=== PATIENT | male | born 1940 | race Caucasian/White ===

== ENCOUNTER 2017-04-14 08:45 | Inpatient (IN) | payer MEDICARE ==
--- NOTE | 2017-04-02 15:52 | HP ---
CC: Dr. Julio César Mayberry; Dr. Ismael Mcfarland, [facility]; Dr. Jamie Martel, [facility]; Dr. Virgilio Valentin, [facility] associated with Michael * DATE OF ADMISSION: 04/14/2017. This patient is scheduled for AA admission by Dr. Simeon. DATE OF PREOPERATIVE HISTORY AND PHYSICAL EXAMINATION: 04/01/2017. ATTENDING SURGEON: Dr. Bertin Simeon * (dictated by Sulma Kinsey, MOHINI). CHIEF COMPLAINT: Colostomy reversal. HISTORY OF PRESENT ILLNESS: The patient is a pleasant, 76-year-old male with multiple medical comorbidities. He was admitted to [facility] 2016 with bilateral pneumonia and urosepsis. He was dehydrated and required treatment with IV fluids and antibiotics. CAT scan of the abdomen revealed a large area of air from the ischium to the peritoneum and the patient was subsequently transferred to [facility] for incision and drainage of a large ischiorectal abscess. Due to chronic diarrhea, he underwent diverting transverse loop colostomy to allow the wound to heal. He was then admitted to [facility] on 06/17/2016 with discharge on 06/26/2016 to [facility] for further rehab. The patient was discharged home 2016. His ischial rectal wound has healed and he has recovered nicely and has been medically cleared to proceed with the scheduled surgery of open reversal of colostomy by Dr. Simeon. He underwent colonoscopy by Dr. Simeon February [address] Simeon was able to visualize both the proximal and distal limbs of the colostomy and there were no significant abnormal findings. Dr. Simeon has reviewed the findings with the patient and has described the nature of the surgical procedure and the expected hospitalization, and today I reviewed with him the guidelines for a bowel cleansing prep on the day before surgery consisting of clear liquid diet, Colyte laxative, Neomycin and Metronidazole. The patient has had a chance to ask questions and stated that he understands the information and is satisfied with the answers given to his questions. He will sign surgical consent on the day of surgery. PAST MEDICAL HISTORY: Significant for type 2 diabetes, hypertension, hyperlipidemia, coronary artery disease with myocardial infarction 1998, colon cancer with low anterior resection followed by chemotherapy and radiation in 1999, COPD, possible obstructive sleep apnea, chronic right pleural effusion, bilateral pneumonia May 2016, bladder outlet obstruction during May 2016 hospitalization requiring indwelling Erickson catheter, urosepsis, urge urinary incontinence after removal of the indwelling Erickson catheter which is now improved with Vesicare as prescribed by Dr. Theodore. He also suffers from hearing loss and degenerative joint disease causing ambulation dysfunction and he uses a cane. PAST SURGICAL HISTORY: Incision and drainage of large ischiorectal abscess May 2016 at [facility], diverting transverse loop colostomy May 2016 due to chronic diarrhea and wound contamination, low anterior colon resection 1999, followed by chemo and radiation, retinal procedures and tonsillectomy. MEDICATIONS: 1. Lisinopril 5 mg p.o. daily. 2. Tamsulosin 0.4 mg daily. 3. Potassium ER 10 mEq daily. 4. Aspirin 81 mg p.o. daily. The patient will continue this in the perioperative period. 5. Furosemide 20 mg p.o. daily. 6. Pantoprazole 40 mg p.o. daily. 7. Docusate 100 mg p.o. b.i.d. 8. Ferrous Sulfate 325 mg p.o. b.i.d. 9. Metoprolol 25 mg p.o. b.i.d. 10. Glipizide 5 mg p.o. b.i.d. The patient was instructed to hold Glipizide during the bowel prep on 04/13/2017 and on the morning of surgery. 11. Gabapentin 600 mg t.i.d. 12. Simvastatin 40 mg p.o. daily at bedtime. 13. Hydrocodone acetaminophen 5/325 b.i.d. prn. 14. Clotrimazole 1% cream apply to the affected area b.i.d. 15. Dorzolamide-Timolol eye drops one drop in each eye b.i.d. ALLERGIES: PENICILLIN CAUSED HIVES, NIACIN CAUSED FLUSHING. FAMILY HISTORY: Both parents had some type of cancer. No known anesthesia complications, bleeding tendencies or clotting disorders. 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 He is a former smoker of two packs of cigarettes per day for 35 years and quit smoking May 2016. He denies the use of alcohol or other substances. He states that currently a nurse from [employer] visits once a week. REVIEW OF SYSTEMS: Constitutional: No fevers, chills, excessive fatigue or change in weight. Respiratory: History of chronic right pleural effusion, history of bilateral pneumonia May 2016, significant history of smoking two packs per day for 35 years and quit in May 2016. He denies any shortness of breath, but he is not very physically active. He has been diagnosed with COPD and is followed at [place] in the [facility] by Dr. Valentin and has been cleared to proceed with the upcoming surgery. Dr. Valentin' note indicates the patient may have obstructive sleep apnea which is untreated and he cautions on oversedation. Cardiovascular: History of coronary artery disease with an AZ in 1998 and he underwent cardiac cath at that time and was advised medical treatment only. According to the cardiology clearance note from Dr. Martel from the [facility], the patient has been stable from a cardiac standpoint for the past 17 years and was able to go through the colon resection as well as the transverse loop colostomy procedures without any significant cardiac symptoms. The patient denies any chest pain or palpitations. He is treated for hypertension and has chronic edema of the lower extremities. Endocrine: He is a type 2 diabetic. He checks his fingerstick at home one to five a week and reports it typically runs anywhere from 2 to 300. His fasting blood sugar on 04/01/2016 with his preadmission testing was 275 and his primary care physician, Dr. Julio César Mayberry has been notified. Gastrointestinal: Colostomy is functioning very well. He denies any abdominal pain, nausea, or vomiting. Genitourinary: He is following with Dr. Theodore for urge urinary incontinence and a history of bladder outlet obstruction during his May 2016 hospitalization. He is improving with Vesicare. He has no previous renal disease or renal calculi. General: Denies any history of deep vein thrombosis or pulmonary embolism. Denies any bleeding tendencies, is not sure if he ever received a blood transfusion. He denies any previous anesthesia complications. He has been cleared to proceed with surgery by Dr. Ismael Mcfarland who is his internal medicine physician at the [facility]. He has been cleared from cardiology by Dr. Martel from [facility], and by Dr. Virgilio Valentin from the [facility]. PHYSICAL EXAMINATION GENERAL: The patient is a 76-year-old obese male in no acute distress. VITAL SIGNS: Height 67 inches, weight 228 pounds, body mass index 35.7. Blood pressure 140/84, pulse 84, respirations 20, temperature 98.7. SKIN: Warm, dry, intact. HEENT: Benign. NECK: Supple. No cervical lymphadenopathy. LUNGS: Clear throughout the left lung field, diminished breath sounds right lung base, otherwise clear. No rales or rhonchi. HEART: Regular rate and rhythm. No murmurs or rubs appreciated. ABDOMEN: Active bowel sounds in all quadrants. Normal to percussion. Abdomen is soft, nontender, and nondistended without guarding, rigidity, rebound tenderness or organomegaly. No palpable hernias. Upper abdomen loop colostomy with prolapse easily reducible. Lower midline incision without obvious hernia. EXTREMITIES: Lower extremities with chronic edema, no pitting, no skin ulcerations. All extremities are warm. GENITALIA: Exam deferred. RECTAL: Exam deferred. NEUROLOGIC: Alert and oriented times three, hearing deficit noted. Ambulation is steady with the use of a cane. IMPRESSION: Patient required diverting loop colostomy to allow for wound healing which has been achieved. PLAN: AA admission to Dr. Simeon's service on 04/14/2017 for open colostomy reversal. The patient was instructed in a bowel cleansing prep on the day before surgery consisting of clear liquid diet, Colyte laxative, Neomycin, and Metronidazole. ERIC KINSEY NP [id number]/[facility] #: [id number] MONY
--- NOTE | 2017-08-07 14:39 | HP ---
AMENDED REPORT NOW INCLUDES COSIGNER DESIGNATION - ESIGNED BEFORE ADJUSTMENTS CC: Dr. Julio César Mayberry; Dr. Ismael Mcfarland; Dr. Jamie Martel; Dr. Virgilio Valentin * PREOPERATIVE HISTORY AND PHYSICAL: DATE OF ADMISSION: 08/11/17 This patient is scheduled for AA admission by Dr. Simeon on 08/11/17. DATE OF PREOPERATIVE HISTORY AND PHYSICAL EXAM: 08/06/17 ATTENDING SURGEON: Bertin Simeon MD * (dictated by Sulma Kinsey NP). CHIEF COMPLAINT: Colostomy reversal. HISTORY OF PRESENT ILLNESS: The patient is a pleasant 77-year-old male with multiple medical comorbidities. He is known to Dr. Simeon when he was admitted to [facility] on 06/13/16 with bilateral pneumonia and urosepsis. He was dehydrated and required treatment with IV fluids and antibiotics. CAT scan of the abdomen revealed a large area of air from the ischium to the peritoneum, and the patient was subsequently transferred to [facility] for incision and drainage of a large ischiorectal abscess. Due to chronic diarrhea, he underwent diverting transverse loop colostomy to allow the wound to heal. He was then admitted to [facility] on 06/17/16, was discharged, 06/26/16 to the [facility] for further rehab. The patient was discharged home on 07/30/16. His ischiorectal wound healed nicely and he was medically cleared in March 2017 to proceed with the scheduled surgery of open reversal of the colostomy, but on preadmission, his diabetes was noted to be poorly controlled. Now with the guidance from his primary care provider, Dr. Mayberry at [place], the patient's blood sugar is under control and his hemoglobin A1c is 5.6. He is now medically cleared to proceed with the scheduled surgery. He underwent colonoscopy by Dr. Simeon and both the proximal and distal limbs of the colostomy were visualized and there were no significant abnormal findings. Dr. Simeon has reviewed the findings with the patient and has described the nature of the surgical procedure of open reversal of the colostomy, the expected hospitalization, and today I reviewed with him the guidelines for a bowel cleansing prep on the day before surgery consisting of clear liquid diet, Colyte laxative, Neomycin, and metronidazole. The patient has had a chance to ask questions and stated that he understands the information and is satisfied with the answers given to his questions. He will sign surgical consent on the day of surgery. PAST MEDICAL HISTORY: Significant for type 2 diabetes, hypertension, hyperlipidemia, coronary artery disease with myocardial infarction in 1998, colon cancer with low anterior resection followed by chemotherapy and radiation in 1999, COPD, possible obstructive sleep apnea, chronic right pleural effusion , bilateral pneumonia in May 2016, bladder outlet obstruction during May 2016 hospitalization requiring indwelling Erickson catheter, urosepsis, urge, urinary incontinence after removal of the indwelling Erickson catheter, which is now improved with VESIcare as prescribed by Dr. Theodore. He also suffers from hearing loss, degenerative joint disease causing ambulation dysfunction and he typically uses a cane. PAST SURGICAL HISTORY: Incision and drainage of large ischiorectal abscess May 2016 at [facility], diverting transverse loop colostomy in May 2016 due to chronic diarrhea and wound contamination, low anterior colon resection 1999 followed by chemo and radiation, retinal procedures, and tonsillectomy. MEDICATIONS: 1. Simvastatin 40 mg p.o. at bedtime. 2. Gabapentin 300 mg two tablets t.i.d. 3. Lisinopril 5 mg p.o. daily. 4. Metoprolol ER 25 mg p.o. b.i.d. 5. Dorzolamide 2% one drop in each eye b.i.d. 6. Ventolin inhaler 108 mcg per actuation two puffs 4 times a day p.r.n. 7. Tamsulosin 0.4 mg p.o. daily. 8. Potassium chloride ER 10 mEq p.o. daily. 9. Aspirin 81 mg p.o. daily, which he will hold 5 days preop. 10. Furosemide 20 mg p.o. daily. 11. Pantoprazole 40 mg p.o. daily. 12. Docusate 100 mg p.o. b.i.d. 13. Ferrous sulfate 325 mg p.o. b.i.d. 14. Glipizide 5 mg p.o. b.i.d. 15. VESIcare 5 mg p.o. daily. 16. Metformin 500 mg two tablets p.o. b.i.d., and the patient will hold the metformin on the day before surgery and on the morning of surgery. ALLERGIES: 1. PENICILLIN cause hives. 2. NIACIN causes flushing. FAMILY HISTORY: Both parents had some type of cancer; no known anesthesia complications, bleeding tendencies or clotting disorders. 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 He is a former smoker of 2 packs of cigarettes per day for 35 years and quit smoking in May 2016. He denies the use of alcohol or other substances. REVIEW OF SYSTEMS: Constitutional: No fevers, chills, excessive fatigue, and he has been able to lose weight to help with control of his glucose. Respiratory: History of chronic right pleural effusion, bilateral pneumonia May 2016, significant history of smoking 2 packs per day for 35 years and quit in May 2016. He denies any shortness of breath, but he is not very physically active. He has been diagnosed with COPD and is followed at [place] in the [facility] by Dr. Valentin and has been cleared to proceed with the upcoming surgery. Dr. Valentin' note indicates the patient may have obstructive sleep apnea, which is untreated and he cautions on oversedation. Cardiovascular: History of coronary artery disease with an [place] in 1998, and he underwent cardiac cath at that time and was advised medical treatment only. According to the cardiology clearance note from Dr. Martel from the [facility], the patient has been stable from the cardiac standpoint for the past 17 years and was able to go through the colon resection as well as the transverse loop colostomy procedures without any significant cardiac symptoms. The patient denies any chest pain or palpitations. He was treated for hypertension and chronic edema of the lower extremities. Endocrine: He has a type 2 diabetic; his fingersticks have improved and this morning it was 145 and he states that it typically has been less than 200 for the past several months. His hemoglobin A1c is now 5.6. Gastrointestinal: Colostomy is functioning well, he denies any abdominal pain, nausea, or vomiting. Genitourinary: He is followed by Dr. Theodore for urge urinary incontinence and a history of bladder outlet obstruction during the May 2016 hospitalization. He is improving with VESIcare, but he does wear Depends at night. He has no previous renal disease or renal calculi. General: Denies any history of deep vein thrombosis or pulmonary embolism, denies any bleeding tendencies and is not sure if he ever received a blood transfusion. He denies any previous anesthesia complications. PHYSICAL EXAMINATION GENERAL SURVEY: The patient is a 77-year-old overweight male, well developed, in no acute distress. VITAL SIGNS: Height 67 inches, weight approximately 220 pounds. Body mass index 35. Blood pressure 140/90, pulse 80 and regular, respiratory rate 18, temperature 97.8 tympanic. SKIN: Warm, dry, intact. There is a small area of abrasion on the left lower extremity just above the ankle in the lateral aspect, but no sign of drainage or infection. HEENT: Benign. NECK: Supple. No cervical lymphadenopathy. LUNGS: Breath sounds bilaterally clear and equal. No rales or rhonchi. HEART: Regular rate and rhythm. No murmurs or rubs appreciated. ABDOMEN: Active bowel sounds; soft, nontender, and nondistended without guarding, rebound tenderness, or organomegaly. No palpable hernias. Upper abdomen with loop colostomy. There is some prolapse noted, but no parastomal hernia. Lower midline incision without obvious hernia. GENITALIA: Deferred. RECTAL: Deferred. EXTREMITIES: Lower extremities with mild chronic edema; no pitting. Extremities are warm. NEUROLOGIC: Alert and oriented x3. Hearing deficit noted. Ambulation is steady with the use of a cane. IMPRESSION: The patient required diverting loop colostomy to allow for wound healing, which has been achieved. PLAN: AA admission to Dr. Simeon's service on 08/11/17 for open colostomy reversal. The patient was instructed in a bowel cleansing prep on the day before surgery consisting of clear liquid diet, Colyte laxative, Neomycin, and metronidazole. ERIC KINSEY, MOHINI [id number]/[facility] #: [id number] MONY
[2017-08-11] MEDS ORDERED: NS 0.9% IVPB SCH ×2
[2017-08-11] MEDS ORDERED: GENTAMICIN ADULT IVPB SCH ×2
[2017-08-11] MEDS ORDERED: Buffered Lidocaine 0.9% SYRIN* 5 ML/SYR SYRINGE INTRADERM ONE (06:00)
[2017-08-11] MEDS ORDERED: Heparin VIAL(*) 5000 UNITS/ML VIAL (FIVE THOUSAND) ONE (06:10)
[2017-08-11] MEDS ORDERED: Clindamycin 900 MG IVPREMIX(* 900 MG/50 ML SDV IV ONE (06:10)
[2017-08-11] MEDS ORDERED: Midazolam* 1 MG/ML 2 ML VIAL (2 MG) ONE (07:12)
[2017-08-11] MEDS ORDERED: fentaNYL* 50 MCG/ML 2 ML VIAL (100 MCG VIAL) ONE ×3 (07:12→11:38)
[2017-08-11] MEDS ORDERED: Lidocaine 2% PF * 5 ML VIAL ONE (07:38)
[2017-08-11] MEDS ORDERED: Dexamethasone IV* 4 MG/ML 1 ML (4 MG) ONE (07:38)
[2017-08-11] MEDS ORDERED: Famotidine IV* 10 MG/ML 2 ML (20 mg) ONE (07:38)
[2017-08-11] MEDS ORDERED: Propofol* 10 MG/ML 20 ML BTL IV PUSH ONE (07:38)
[2017-08-11] MEDS ORDERED: Cisatracurium* 2 MG/ML MDV 5 ML ONE (07:44)
[2017-08-11] MEDS ORDERED: Phenylephrine INJ* 10 MG/ML 1 ML VIAL (10 MG) ONE (07:59)
[2017-08-11] MEDS ORDERED: EPHEDrine (Pressors)* 50 MG/ML VIAL ONE (08:01)
[2017-08-11] MEDS ORDERED: VASOPRESSIN 20 UNITS/ML 1 ML VIAL ONE (08:06)
[2017-08-11] MEDS ORDERED: Hetastarch 6% in NS* 500 ML IV ONE (08:13)
[2017-08-11] MEDS ORDERED: fentaNYL* 50 MCG/ML 2 ML VIAL (100 MCG VIAL) IV PRN (08:57)
[2017-08-11] MEDS ORDERED: PROCHLORPERAZINE INJ 5 MG/ML 2 ML VIAL IV PRN (08:57)
[2017-08-11] MEDS ORDERED: HYDROmorphone INJ* 1 MG/ML CARPUJECT SYRINGE IV PRN (08:57)
[2017-08-11] MEDS ORDERED: DiMENhydriNATE IV* 50 MG/ML VIAL IV PUSH PRN (08:57)
[2017-08-11] MEDS ORDERED: Levalbuterol 0.63MG/3ML NEB* UNIT OF USE INH PRN (08:57)
[2017-08-11] MEDS ORDERED: Naloxone* 0.4 MG/ML 1 ML VIAL IV PRN (08:57)
[2017-08-11] MEDS ORDERED: Acetaminophen TAB* 325 MG PO PRN ×2 (08:57→11:03)
[2017-08-11] MEDS ORDERED: Bupivacaine 0.5%* 50 ML VIAL ONE (10:43)
[2017-08-11] MEDS ORDERED: Albuterol HFA INHALER* 8 gm MDI INH PRN ×2 (11:11→14:36)
[2017-08-11] MEDS ORDERED: Acetaminophen TAB* 325 MG ONE (11:38)
[2017-08-11] MEDS ORDERED: Dextrose 50% Syringe 50 ML* 25 GM/50 ML SYRINGE IV PUSH PRN (12:38)
[2017-08-11] MEDS: NS 0.9% 1000 ML* 1,000 ML IV SCH ×2 (13:35→22:04)
[2017-08-11] MEDS: Heparin VIAL(*) 5000 UNITS/ML VIAL (FIVE THOUSAND) SUBCUT SCH ×2 (14:42→20:13)
[2017-08-11] MEDS: Insulin LISPRO* 1 UNITS UNIT SUBCUT SCH ×2 (18:02→22:10)
[2017-08-11] MEDS: Metoprolol Tartrate TAB* 25 MG PO SCH (20:12)
[2017-08-11] MEDS: Atorvastatin* 20 MG TAB PO SCH (20:12)
--- NOTE | 2017-08-11 20:24 | CONS ---
CC: Bertin Simeon MD * CONSULTATION REPORT: DATE OF CONSULT: 08/11/17 REFERRING PHYSICIAN: Bertin Simeon MD CONSULTING PHYSICIAN: Inez Patiño DO PRIMARY CARE PHYSICIAN: Dr. Julio César Mayberry, from [facility]. CHIEF COMPLAINT: Colostomy reversal. REASON FOR CONSULTATION: Medical comanagement. HISTORY OF PRESENT ILLNESS: Mr. Hannon is a pleasant 77-year-old gentleman with past medical history significant for hypertension, type 2 diabetes mellitus , hyperlipidemia, and coronary artery disease with a history of myocardial infarction back in 1998 without need for catheterization or a cardiac intervention. The patient has multiple medical comorbidities and was known to Dr. Simeon in the past from [facility] due to recent admission in May of this year with bilateral pneumonia and urosepsis. The patient unfortunately developed a large ischiorectal abscess that needed to be incised and drained at [facility] back in May of last year. Due to this issue and his chronic diarrhea, his wound continued to have contamination issues for which he underwent a diverting transverse loop colostomy to allow the wound to heal. He was then admitted to [facility] after the surgery and stayed there for approximately 9 days for short-term rehab. The patient was then transferred to [facility] for additional rehab and then discharged back in July of last year. He has been followed by Dr. Simeon to assure wound management and it appears like his recent perirectal abscess has completely healed. The patient was planned to undergo an elective colostomy reversal that was done today. Given his medical comorbidities, we were asked to see the patient to manage him during his postoperative period while in the hospital. The patient himself denies any recent chest pain, shortness of breath, headache, dizziness, or blurred vision. He was seen and examined at the recovery room unit today where he appears comfortable and he denies any symptoms at this time. PAST MEDICAL HISTORY: As mentioned above, significant for type 2 diabetes mellitus, hypertension, hyperlipidemia, coronary artery disease with myocardial infarction back in 1998. He also has a history of COPD, chronic right pleural effusion, urinary outlet obstruction for which he was required to have indwelling Erickson catheter for and had treatment for urosepsis. He also has conductive hearing loss, chronic back pain with degenerative joint disease. PAST SURGICAL HISTORY: Significant for incision and drainage of a large ischiorectal abscess back in May of last year at [facility] with subsequent diverting transverse loop colostomy due to chronic diarrhea and wound contamination. The patient is also status post low anterior colon resection in 1999 due to colon cancer that was followed by chemotherapy and radiation. He also had retinal surgery procedures done at [facility] as well as tonsillectomy as a child. MEDICATIONS: His medications at home include: 1. Simvastatin 40 mg p.o. q.h.s. 2. Gabapentin 300 mg 2 tablets t.i.d. 3. Lisinopril 5 mg p.o. daily. 4. Metoprolol 25 mg p.o. b.i.d. 5. Dorzolamide 2% 1 drop in each eye b.i.d. 6. Ventolin inhaler 108 mcg 2 puffs 4 times a day as needed for shortness of breath. 7. Tamsulosin 0.4 mg p.o. daily. 8. Potassium chloride 10 mEq p.o. daily. 9. Aspirin 81 mg p.o. daily. 10. Lasix 20 mg p.o. daily. 11. Pantoprazole 40 mg p.o. daily. 12. Docusate sodium 100 mg p.o. b.i.d. 13. Ferrous sulfate 325 mg p.o. b.i.d. 14. Glipizide 5 mg p.o. b.i.d. 15. VESIcare 5 mg p.o. daily. 16. He also takes metformin 500 mg 2 tablets p.o. b.i.d. ALLERGIES: He is allergic to PENICILLIN that cause hives and NIACIN that cause flushing. FAMILY HISTORY: The patient notes both parents having some type of cancer that led to their . He denies any history of heart disease in the family. SOCIAL HISTORY: The patient lives alone. He is a former smoker of 2 packs of cigarettes per day for 35 years and recently quit about a year ago. He denies alcohol use. He does not have a healthcare proxy assigned and he will get back to us regarding that issue. REVIEW OF SYSTEMS: See HPI, otherwise 14-point review of systems were essentially negative. PHYSICAL EXAM: General: He is a pleasant elderly gentleman, appears comfortable at recovery unit bed and in no acute distress or discomfort. Vitals : Recent set of vitals is heart rate of 108, blood pressure 121/70, respirations of 25, O2 sat of 95% on 2 L oxygen via nasal canula, and temperature of 98.4. HEENT: Head is normocephalic, atraumatic. Sclerae anicteric. PERRLA. EOMs intact. Oropharynx is pink and moist. Neck: Supple. Trachea midline. No cervical adenopathy, thyromegaly, or JVD. Lungs: Clear to auscultation bilaterally. There are decreased breaths sounds bilaterally, but no rales, wheezes, or rhonchi. Heart: Regular rate and rhythm. Normal S1 and S2 without rubs, murmurs or gallops. Back with normal curvature. No CVA tenderness. Abdomen: Soft and nondistended. There is mild , very incisional tenderness noted, but the incision is covered with a dressing that appears intact and dry. There is no guarding, rigidity, or rebound. Bowel sounds were normoactive. Extremities: Without cyanosis, clubbing or edema. Neurologic: Grossly intact. Rectal Exam: Deferred at this time. IMPRESSION: A 77-year-old gentleman with a past medical history for hypertension, hyperlipidemia, type 2 diabetes mellitus, coronary artery disease with history of myocardial infarction back in 1998, who presents to the Day Surgery today status post colostomy reversal. ASSESSMENT AND PLAN: 1. Colostomy dysfunction and status post colostomy reversal. The patient is postop day #0, status post colostomy reversal. He seems to be comfortable and pain management will be per surgical team. 2. Diabetes mellitus. The patient's diabetes has been under reasonable control as an outpatient. His most recent hemoglobin A1c was 5.4. He has been maintained on metformin and glyburide as an outpatient. We will hold his oral antihyperglycemic medication and will cover him with sliding scale during his hospitalization. 3. Hypertension. The patient had reasonable blood pressure control as an outpatient. We will continue his metoprolol and lisinopril during his postoperative period and we will hold his Lasix while he is getting IV fluid hydration. 3. Coronary artery disease. The patient is comfortable in the recovery room and he had experienced no evidence of chest pain or shortness of breath. He has been stable as an outpatient as well from a cardiac standpoint. He shows no signs of congestive heart failure. We will hold his aspirin for the postoperative period and we will follow him up accordingly. 4. Dyslipidemia. We will continue his simvastatin 40 mg daily. 5. Chronic obstructive pulmonary disease. We will continue his albuterol nebulizer and respiratory assessment. 6. DVT prophylaxis. The patient is covered with subcu heparin. 7. Full code. He is a full code. The patient was seen and examined in the recovery room in the immediate postoperative time. Total time spent was approximately 60 minutes, greater than 50% was ppih-lh-dami care. ABDIRAHMAN ISRAEL [id number]/[facility] #: [id number] MONY
[2017-08-11] MEDS: Dorzolamide/Timolol OPTH (NF) 10 ML BOT RIGHT EYE SCH (21:44)
[2017-08-11] MEDS: CMCS: Solifenacin(NF) 5 MG TAB PO SCH (21:52)
[2017-08-11] MEDS: oxyCODONE/Acetamin 5/325 MG* TAB PO PRN (22:04)
[2017-08-12] MEDS: Ondansetron 40 MG VIAL* 2 MG/ML 20 ML VIAL IV PRN ×3 (00:07→17:05)
[2017-08-12] MEDS: HYDROmorphone INJ* 2 MG/ML CARPUJECT SYRINGE IV PRN ×2 (01:25)
[2017-08-12] MEDS: Heparin VIAL(*) 5000 UNITS/ML VIAL (FIVE THOUSAND) SUBCUT SCH ×3 (05:11→22:08)
[2017-08-12] MEDS: oxyCODONE/Acetamin 5/325 MG* TAB PO PRN ×2 (05:12→16:49)
--- NOTE | 2017-08-12 05:18 | OP ---
CC: [facility]; Dr. Julio César Mayberry, [facility] * DATE OF OPERATION: 08/11/17 - ROOM #334 DATE OF : 44 SURGEON: Bertin Simeon MD [employer] TE[employer]ER: Kelly Montoya NP. ANESTHESIOLOGIST: Dr. Palmer. ANESTHESIA: Local with general. PRE-OP DIAGNOSIS: Transverse colon loop colostomy. POST-OP DIAGNOSIS: Transverse colon loop colostomy. OPERATIVE PROCEDURE: Open reversal of transverse loop colostomy. ESTIMATED BLOOD LOSS: 100 cc. IV FLUIDS: 1.6 L of crystalloid and 500 cc of Hespan. SPECIMEN: Portion of distal transverse colon. WOUND CLASSIFICATION: Clean contaminated. COMPLICATIONS: None. DRAINS: None. BRIEF HISTORY: Mr. 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 This was done for diversionary purposes. He has now recovered completely, undergone colonoscopy, and is to undergo an elective colostomy reversal. DESCRIPTION OF PROCEDURE: Written informed consent was obtained, the abdomen was marked with indelible ink and preoperative antibiotics were administered. The patient was taken to the operating room and placed in a supine position. Sequential compression devices and a warming blanket were applied. General anesthesia was administered. The abdomen was prepped and draped in usual sterile fashion. Time-out verification was completed. Initially an elliptical incision was made about the existing transverse loop colostomy, which was in the left upper quadrant of the abdominal wall. This was carried down to the subcutaneous tissue and the bowel was dissected from the surrounding tissue and scar tissue down to the abdominal wall fascia and we continued into the abdominal cavity with care to prevent injury to the bowel. We were able to circumferentially free up the bowel as we entered the peritoneal cavity and adhesions were lysed sharply. By doing so, we were able to mobilize more of the colon up out of the incision in preparation for anastomosis. The bowel appeared to be unremarkable with excellent viability and once I felt that we had mobilized enough of the bowel up out of the incision, we used SHANICE 80 stapler to divide the colon proximally and distally to the loop colostomy openings. This specimen was sent for pathology. We then performed a [id number] anastomosis with care not to twist the bowel using the SHANICE 80 stapler and the common rent was closed with the TA 60 stapler. The 3-0 silk sutures were used to imbricate several of the staple lines. The anastomosis appeared to be under no tension, had excellent blood supply. There was no significant mesenteric rent to close. Once hemostasis was assured, we placed the anastomosis back into abdominal cavity and covered this with omentum. The needle counts, sponge counts and instruments were reported as correct. Next, the posterior sheath and fascia were mobilized medial and lateral to the incision and this layer was closed with interrupted #1 Polysorb suture. We then mobilized the rectus sheath medially and somewhat laterally on to the anterior abdominal wall and closed the rectus sheath in a vertical orientation with interrupted #1 Vicryl suture. The subcutaneous cavity was then irrigated. Hemostasis was assured. 2% Marcaine was infiltrated extensively for postoperative pain management. The wound was left open and packed with 2 inch moist Laurel gauze and covered with a dry sterile dressing. The patient tolerated the procedure well, was taken to the recovery room in stable condition. [id number]/[facility] #: [id number] MONY
[2017-08-12 05:19] LABS: ABS Basophils 0 10^3/ul (0-0.2); ABS Eosinophils 0.2 10^3/ul (0-0.6); ABS Lymphocytes 0.6 10^3/ul (1.0-4.8); ABS Monocytes 0.6 10^3/ul (0-0.8); ABS Neutrophils 8.7 10^3/ul (1.5-7.7); ABS Nucleated RBC 0 10^3/ul; Eosinophil % 2.2 % (0-6); Hematocrit 33 % (42-52); Hemoglobin 11.3 g/dl (14.0-18.0); Lymphocyte % 5.5 % (25-47); Mean Corpuscular HGB Conc 34 g/dl (31-36); Mean Corpuscular Hemoglobin 29 pg (27-31); Mean Corpuscular Volume 83 fL (80-94); Mean Platelet Volume 7.4 um3 (7.4-10.4); Nucleated Red Blood Cells % 0.1; Platelet Count 154 10^3/ul (150-450); Red Blood Count 3.94 10^6/ul (4.0-5.4); Red Cell Distribution Width 16 % (10.5-15); White Blood Count 10.1 10^3/ul (3.5-10.8)
[2017-08-12 05:37] LABS: EGFR Non-African American 103.1 (>60)
[2017-08-12] MEDS: NS 0.9% 1000 ML* 1,000 ML IV SCH ×3 (06:06→22:39)
[2017-08-12] MEDS ORDERED: Potassium Chlor TAB* 10 MEQ TAB.ER PO SCH (08:00)
[2017-08-12] MEDS: Lisinopril TAB* 5 MG PO SCH (08:34)
[2017-08-12] MEDS: Omeprazole CAP* 20 MG PO SCH (08:34)
[2017-08-12] MEDS: Tamsulosin CAP* 0.4 MG PO SCH (08:34)
[2017-08-12] MEDS: Metoprolol Tartrate TAB* 25 MG PO SCH ×2 (08:41→20:55)
[2017-08-12] MEDS: Dorzolamide/Timolol OPTH (NF) 10 ML BOT RIGHT EYE SCH ×2 (08:41→20:58)
[2017-08-12] MEDS ORDERED: NS 0.9% 500 ML* 500 ML IV ONE (08:51)
--- NOTE | 2017-08-12 09:05 | PN ---
Progress Note - Progress Note Date of Service: 08/12/17 Note: S: POD #1. Patient seen with Dr. Simeon. c/o back pain. Has had a couple of loose stools. States that he had a couple of episodes of vomiting postop, but did fine overnight and denies N at present. Per nsg, low UOP overnight. Current Medications Acetaminophen (Tylenol Tab*) 650 mg PO Q4H PRN PRN Reason: Pain Or Temperature >101 F Albuterol (Ventolin Hfa Inhaler*) 1 puff INH BID PRN PRN Reason: SOB/WHEEZING Atorvastatin Calcium (Lipitor*) 20 mg PO 1999 [facility] Last Admin: 08/11/17 20:12 Dose: 20 mg Dextrose (D50w Syringe 50 Ml*) 12.5 gm IV PUSH .FOR FS < 60 - SS PRN PRN Reason: FS < 60 Dorzolamide/Timolol (Cosopt (Nf)) 1 drop RIGHT EYE 799,1999 [facility] PRN Reason: Protocol Last Admin: 08/12/17 08:41 Dose: Not Given Heparin Sodium (Porcine) (Heparin Vial(*)) 5,000 units SUBCUT Q8HR [facility] Last Admin: 08/12/17 05:11 Dose: 5,000 units Hydromorphone HCl (Dilaudid Inj*) 0.5 mg IV Q1H PRN PRN Reason: Pain - severe Last Admin: 08/12/17 01:25 Dose: 0.5 mg Sodium Chloride (Ns 0.9% 1000 Ml*) 1,000 mls @ 125 mls/hr IV PER RATE [facility] Last Admin: 08/12/17 06:06 Dose: 125 mls/hr Sodium Chloride (Ns 0.9% 500 Ml*) 500 mls @ 1,000 mls/hr IV ONCE ONE Stop: 08/12/17 09:20 Insulin Human Lispro (Humalog*) 0 units SUBCUT ACHS [facility] PRN Reason: Protocol Last Admin: 08/11/17 22:10 Dose: Not Given Lisinopril (Prinivil Tab*) 5 mg PO 0800 [facility] Last Admin: 08/12/17 08:34 Dose: 5 mg Metoprolol Tartrate (Lopressor Tab*) 25 mg PO 799,1999 [facility] Last Admin: 08/12/17 08:41 Dose: 25 mg Omeprazole (Prilosec Cap*) 20 mg PO DAILY@0730 [facility] Last Admin: 08/12/17 08:34 Dose: 20 mg Ondansetron HCl (Zofran 40 Mg Vial*) 4 mg IV Q4H PRN PRN Reason: NAUSEA/VOMITING Last Admin: 08/12/17 00:07 Dose: 4 mg Oxycodone/Acetaminophen (Percocet 5/325 Tab*) 1 tab PO Q4H PRN PRN Reason: PAIN Last Admin: 08/12/17 05:12 Dose: 1 tab Potassium Chloride (Klor Con Er Tab*) 10 meq PO 0800 [facility] Last Admin: 08/12/17 08:34 Dose: 10 meq Solifenacin (Vesicare(Nf)) 5 mg PO 1999 [facility] Last Admin: 08/11/17 21:52 Dose: 5 mg Tamsulosin HCl (Flomax Cap*) 0.4 mg PO 0800 [facility] Last Admin: 08/12/17 08:34 Dose: 0.4 mg O: Vital Signs - 8 hr 08/12/17 08/12/17 08/12/17 01:25 02:27 03:29 Temperature 99.3 F Pulse Rate 105 Respiratory 16 16 30 Rate Blood Pressure 108/53 (mmHg) O2 Sat by Pulse 95 Oximetry 08/12/17 08/12/17 05:12 07:42 Temperature 98.5 F Pulse Rate 98 Respiratory 16 20 Rate Blood Pressure 99/59 (mmHg) O2 Sat by Pulse 95 Oximetry Intake and Output Last 24 Hours 08/10/17 08/11/17 08/12/17 08/13/17 06:59 06:59 06:59 06:59 Intake Total 5130 Output Total 1530 Balance 3600 Weight 221 lb Intake: IV Fluids 4400 CLINDAMYCIN 900 MG 50 GENTAMYCIN 330 MG 250 Hetastarch 500 LR 1600 NS (0.9%) 2000 Oral 730 Output: Urine 150 Erickson 1250 Residual 30 Erickson 16 Fr 30 Estimated Blood Loss 100 Other: Date of Last Bowel 08/12/17 Movement # Bowel Movements 0 1 Estimated Stool Amount Small Medium Gen: obese male in NAD HEENT: mm sl dry Heart: reg Lungs: clear ant Abd: +BS; soft; mild periwound tenderness; wound clean; moderate serosang drainage; packing changed. A: s/p reversal of transverse loop colostomy; prob hypovolemic given low UOP and tachycardia (urine also appears concentrated) P: NS bolus 500 ml IV; full liq diet as waldemar; will maintain Erickson for today to follow UOP; ambulate; wound care
[2017-08-12] MEDS: Insulin LISPRO* 1 UNITS UNIT SUBCUT SCH ×4 (10:29→20:57)
--- NOTE | 2017-08-12 11:16 | PN ---
Subjective Date of Service: 08/12/17 Interval History: Mr. Hannon reports doing very well today. His only complaints is backache, he thinks because he has been laying on it for a long time. Planning to get up, sit on chair, and ambulate as tolerated. Denies chest pain, palpitations, SOB, headaches, dizziness or visual changes. His abdominal pain is well under control , denies nausea, vomiting, fever or chills. Tolerating clear liquids, no flatus yet. Other than his backache, he has no other complaints. HR notd in 100s last night, decreased urine output, but again has been asymptomatic. Family History: Unchanged from Admission Social History: Unchanged from Admission Past Medical History: Unchanged from Admission Objective Active Medications: Acetaminophen (Tylenol Tab*) 650 mg PO Q4H PRN PRN Reason: Pain Or Temperature >101 F Albuterol (Ventolin Hfa Inhaler*) 1 puff INH BID PRN PRN Reason: SOB/WHEEZING Atorvastatin Calcium (Lipitor*) 20 mg PO 1999 [facility] Last Admin: 08/11/17 20:12 Dose: 20 mg Dextrose (D50w Syringe 50 Ml*) 12.5 gm IV PUSH .FOR FS < 60 - SS PRN PRN Reason: FS < 60 Dorzolamide/Timolol (Cosopt (Nf)) 1 drop RIGHT EYE 799,1999 [facility] PRN Reason: Protocol Last Admin: 08/12/17 08:41 Dose: Not Given Heparin Sodium (Porcine) (Heparin Vial(*)) 5,000 units SUBCUT Q8HR [facility] Last Admin: 08/12/17 05:11 Dose: 5,000 units Hydromorphone HCl (Dilaudid Inj*) 0.5 mg IV Q1H PRN PRN Reason: Pain - severe Last Admin: 08/12/17 01:25 Dose: 0.5 mg Sodium Chloride (Ns 0.9% 1000 Ml*) 1,000 mls @ 125 mls/hr IV PER RATE [facility] Last Admin: 08/12/17 06:06 Dose: 125 mls/hr Insulin Human Lispro (Humalog*) 0 units SUBCUT ACHS [facility] PRN Reason: Protocol Last Admin: 08/12/17 10:29 Dose: 2 unit Lisinopril (Prinivil Tab*) 5 mg PO 0800 [facility] Last Admin: 08/12/17 08:34 Dose: 5 mg Metoprolol Tartrate (Lopressor Tab*) 25 mg PO 08,1999 [facility] Last Admin: 08/12/17 08:41 Dose: 25 mg Omeprazole (Prilosec Cap*) 20 mg PO DAILY@0730 [facility] Last Admin: 08/12/17 08:34 Dose: 20 mg Ondansetron HCl (Zofran 40 Mg Vial*) 4 mg IV Q4H PRN PRN Reason: NAUSEA/VOMITING Last Admin: 08/12/17 00:07 Dose: 4 mg Oxycodone/Acetaminophen (Percocet 5/325 Tab*) 1 tab PO Q4H PRN PRN Reason: PAIN Last Admin: 08/12/17 05:12 Dose: 1 tab Potassium Chloride (Klor Con Er Tab*) 10 meq PO 08 [facility] Last Admin: 08/12/17 08:34 Dose: 10 meq Solifenacin (Vesicare(Nf)) 5 mg PO 1999 [facility] Last Admin: 08/11/17 21:52 Dose: 5 mg Tamsulosin HCl (Flomax Cap*) 0.4 mg PO 08 [facility] Last Admin: 08/12/17 08:34 Dose: 0.4 mg Vital Signs - 8 hr 08/12/17 08/12/17 08/12/17 03:29 05:12 07:15 Temperature 99.3 F Pulse Rate 105 Respiratory 30 16 16 Rate Blood Pressure 108/53 (mmHg) O2 Sat by Pulse 95 Oximetry 08/12/17 08/12/17 07:42 08:35 Temperature 98.5 F Pulse Rate 98 Respiratory 20 20 Rate Blood Pressure 99/59 (mmHg) O2 Sat by Pulse 95 95 Oximetry Oxygen Devices in Use Now: None Appearance: Laying on his bed, watching TV, appears comfortable and in NAD. Eyes: No Scleral Icterus, PERRLA Ears/Nose/Mouth/Throat: Clear Oropharnyx, Mucous Membranes Moist Neck: NL Appearance and Movements; NL JVP, Trachea Midline Respiratory: Symmetrical Chest Expansion and Respiratory Effort, Clear to Auscultation Cardiovascular: NL Sounds; No Murmurs; No JVD, RRR Abdominal: No Hepatosplenomegaly, - - Abdomen soft and mildly distended. Mild incisional tenderness. Dressing clean, dry and in place. No guarding, rigidity or rebound. Bowel sounds normoactive. Lymphatic: No Cervical Adenopathy Extremities: No Edema Skin: No Rash or Ulcers Neurological: Alert and Oriented x 3, NL Sensation, NL Muscle Strength and Tone Lines/Tubes/Other Access: Clean, Dry and Intact Peripheral IV Nutrition: Taking PO's Result Diagrams: 08/12/17 05:03 08/12/17 05:03 Microbiology and Other Data: Microbiology 08/11/17 21:58 Nasal Screen MRSA (PCR)(BALWINDER) - Final Nasal Mrsa Not Detected 08/11/17 13:34 Nasal Screen MRSA (PCR)(BALWINDER) - Final Nasal Mrsa Not Detected Assess/Plan/Problems-Billing Assessment: A 77 y/o male with PMHx HTN, HLD, COPD, DM type 2, CAD with hx [place] in 1998, who is POD#1 s/p colostomy reversal. - Patient Problems (1) Colostomy dysfunction Current Visit: Yes Status: Acute Priority: High Comment: - s/p colostomy reversal - Management per surgical team, clear liquid diet for now, await bowel function - Pain well controlled - Sinus tachycardia overnight with decreased urine output, likely secondary to dehydration due to bowel prep day before surgery. - 0.9 NS 500cc bolus ordered per surgery (2) Hypertension Current Visit: Yes Status: Chronic Comment: - Well controlled - Continue Lisinopril and Metoprolol (3) Hyperlipidemia Current Visit: No Status: Chronic Comment: - Continue Atrovastatin (4) Diabetes mellitus Current Visit: Yes Status: Chronic Comment: - POC glucose checks qACHS - well controlled, continue Lispro coverage per sliding scale (5) CAD (coronary artery disease) Current Visit: Yes Status: Acute Comment: - stable - ASA on hold (6) COPD (chronic obstructive pulmonary disease) Current Visit: Yes Status: Acute Comment: - Continue home nebs - stable, without exacerbations. (7) BPH (benign prostatic hyperplasia) Current Visit: Yes Status: Chronic Comment: - Erickson cath for POD#1 - Continue Tamsulosin (8) GERD (gastroesophageal reflux disease) Current Visit: Yes Status: Chronic Comment: - Continue PPI coverage with Omeprazole (9) DVT prophylaxis Current Visit: Yes Status: Acute Comment: - subQ Heparin (10) Full code status Current Visit: Yes Status: Acute Status and Disposition: Inpatient, anticipate discharge when meically stable per surgical team.
[2017-08-12] MEDS: CMCS: Solifenacin(NF) 5 MG TAB PO SCH (20:55)
[2017-08-12] MEDS: Atorvastatin* 20 MG TAB PO SCH (20:55)
[2017-08-13] MEDS: oxyCODONE/Acetamin 5/325 MG* TAB PO PRN ×2 (00:08→05:59)
[2017-08-13 05:44] LABS: EGFR Non-African American 121.9 (>60)
[2017-08-13] MEDS: Heparin VIAL(*) 5000 UNITS/ML VIAL (FIVE THOUSAND) SUBCUT SCH ×3 (06:00→21:47)
[2017-08-13] MEDS: NS 0.9% 1000 ML* 1,000 ML IV SCH (06:42)
[2017-08-13] MEDS: Dorzolamide/Timolol OPTH (NF) 10 ML BOT RIGHT EYE SCH ×2 (07:49→21:50)
[2017-08-13] MEDS: Potassium Chlor TAB* 20 MEQ TAB.ER PO SCH ×3 (07:53→20:25)
[2017-08-13] MEDS: Omeprazole CAP* 20 MG PO SCH (07:53)
[2017-08-13] MEDS: Tamsulosin CAP* 0.4 MG PO SCH (07:53)
[2017-08-13] MEDS: Lisinopril TAB* 5 MG PO SCH (07:53)
[2017-08-13] MEDS: Metoprolol Tartrate TAB* 25 MG PO SCH ×2 (07:53→20:25)
[2017-08-13] MEDS ORDERED: Furosemide TAB* 20 MG PO SCH (08:00)
[2017-08-13] MEDS: Insulin LISPRO* 1 UNITS UNIT SUBCUT SCH ×4 (09:19→21:46)
--- NOTE | 2017-08-13 11:38 | PN ---
Progress Note - Progress Note Date of Service: 08/13/17 SOAP: Subjective: Doing well-a little fatigued this morning, did not sleep well He passed gas this morning, no BM Pain is adequately controlled--back is sore chronically Sitting up in a chair-no SOB or CP Objective: Tmax 100.1 Temp Pulse Resp BP Pulse Ox 98.0 F 99 18 127/66 97 08/13/17 07:24 08/13/17 07:24 08/13/17 08:02 08/13/17 07:24 08/13/17 08:00 Intake & Output 08/11/17 08/12/17 08/13/17 08/14/17 06:59 06:59 06:59 06:59 Intake Total 5130 3941 1137 Output Total 1530 850 Balance 3600 3091 1137 Weight 221 lb Intake: IV Fluids 4400 2981 1137 CLINDAMYCIN 900 MG 50 GENTAMYCIN 330 MG 250 Hetastarch 500 LR 1600 NS (0.9%) 1999 2981 1137 Oral 730 960 Output: Urine 150 Erickson 1250 850 Residual 30 Erickson 16 Fr 30 Estimated Blood Loss 100 Other: Estimated Void Medium Medium Date of Last Bowel 08/13/17 Movement # Bowel Movements 0 1 Estimated Stool Amount Small Small PEX: Comfortable Lungs are clear with decreased breath sounds at the bases. No rales or wheezing. Cor is RRR-slightly rapid Abd is soft and distended. Ostomy site is open and pink, packing changed. Bowel sounds are present and are hyperactive throughout and somewhat high pitched. Appropriate incisional tenderness Ext without edema Laboratory Results - last 24 hr 08/12/17 08/12/17 08/12/17 13:45 17:00 20:41 Sodium Potassium Chloride Carbon Dioxide Anion Gap BUN Creatinine Est GFR ( Amer) Est GFR (Non-Af Amer) BUN/Creatinine Ratio Glucose POC Glucose (mg/dL) 159 H 138 H 121 H Calcium 08/13/17 08/13/17 04:57 07:26 Sodium 137 L Potassium 3.3 L Chloride 106 Carbon Dioxide 24 Anion Gap 7 BUN 6 Creatinine 0.64 L Est GFR ( Amer) 156.8 Est GFR (Non-Af Amer) 121.9 BUN/Creatinine Ratio 9.4 Glucose 128 H POC Glucose (mg/dL) 152 H Calcium 6.9 L Assessment: POD# 2 s/p open colostomy reversal HTN/DM/CAD Tachycardia-slight increase in heart rate post-op--no fever, BP adequate, urine output is adequate and he has no cardiopulmonary symptoms. His blood sugars are under good control. His abdominal exam shows good bowel sounds and he is passing flatus this morning. BUN/CR are normal. WBC yesterday was normal. He has been continued on his metoprolol and lisinopril as well. Plan: Will check EKG today to evaluate tachycardia-will discuss with hospitalist. Continue cardiac meds Sub q heparin Increase activity Will re-start po lasix as he will begin to start mobilizing fluid. Recheck labs in AM
[2017-08-13] MEDS: Ondansetron 40 MG VIAL* 2 MG/ML 20 ML VIAL IV PRN (11:51)
--- NOTE | 2017-08-13 15:24 | PN ---
Subjective Date of Service: 08/13/17 Interval History: Little pain. Fair appetite. Walked some today. No new c/o. No SOB, chest pain, cough. He last had a Erickson at home about 10 months ago. Family History: Unchanged from Admission Social History: Unchanged from Admission Past Medical History: Unchanged from Admission Objective Active Medications: Acetaminophen (Tylenol Tab*) 650 mg PO Q4H PRN PRN Reason: Pain Or Temperature >101 F Albuterol (Ventolin Hfa Inhaler*) 1 puff INH BID PRN PRN Reason: SOB/WHEEZING Atorvastatin Calcium (Lipitor*) 20 mg PO 1999 [facility] Last Admin: 08/12/17 20:55 Dose: 20 mg Dextrose (D50w Syringe 50 Ml*) 12.5 gm IV PUSH .FOR FS < 60 - SS PRN PRN Reason: FS < 60 Dorzolamide/Timolol (Cosopt (Nf)) 1 drop RIGHT EYE 08,1999 [facility] PRN Reason: Protocol Last Admin: 08/13/17 07:49 Dose: Not Given Heparin Sodium (Porcine) (Heparin Vial(*)) 5,000 units SUBCUT Q8HR [facility] Last Admin: 08/13/17 06:00 Dose: 5,000 units Hydromorphone HCl (Dilaudid Inj*) 0.5 mg IV Q1H PRN PRN Reason: Pain - severe Last Admin: 08/12/17 01:25 Dose: 0.5 mg Insulin Human Lispro (Humalog*) 0 units SUBCUT ACHS [facility] PRN Reason: Protocol Last Admin: 08/13/17 12:59 Dose: 3 unit Lisinopril (Prinivil Tab*) 5 mg PO 0800 [facility] Last Admin: 08/13/17 07:53 Dose: 5 mg Metoprolol Tartrate (Lopressor Tab*) 25 mg PO 08,1999 [facility] Last Admin: 08/13/17 07:53 Dose: 25 mg Omeprazole (Prilosec Cap*) 20 mg PO DAILY@0730 [facility] Last Admin: 08/13/17 07:53 Dose: 20 mg Ondansetron HCl (Zofran 40 Mg Vial*) 4 mg IV Q4H PRN PRN Reason: NAUSEA/VOMITING Last Admin: 08/13/17 11:51 Dose: 4 mg Oxycodone/Acetaminophen (Percocet 5/325 Tab*) 1 tab PO Q4H PRN PRN Reason: PAIN Last Admin: 08/13/17 05:59 Dose: 1 tab Potassium Chloride (Klor Con Er Tab*) 20 meq PO TID [facility] Last Admin: 08/13/17 07:53 Dose: 20 meq Potassium Chloride (Klor Con Er Tab*) 10 meq PO TID [facility] Solifenacin (Vesicare(Nf)) 5 mg PO 2000 [facility] Last Admin: 08/12/17 20:55 Dose: 5 mg Tamsulosin HCl (Flomax Cap*) 0.4 mg PO 0800 [facility] Last Admin: 08/13/17 07:53 Dose: 0.4 mg Vital Signs - 8 hr 08/13/17 08/13/17 08/13/17 07:24 07:53 08:00 Temperature 98.0 F Pulse Rate 99 Respiratory 16 18 Rate Blood Pressure 127/66 (mmHg) O2 Sat by Pulse 97 97 97 Oximetry 08/13/17 08/13/17 08:02 11:41 Temperature 97.8 F Pulse Rate 88 Respiratory 18 20 Rate Blood Pressure 121/58 (mmHg) O2 Sat by Pulse 96 Oximetry Oxygen Devices in Use Now: None Appearance: Alert, in a chair. In good spirits. Looks comfortable. Eyes: No Scleral Icterus Neck: NL Appearance and Movements; NL JVP, No Thyroid Enlargement, Masses Respiratory: Symmetrical Chest Expansion and Respiratory Effort, Clear to Auscultation, Clear to Percussion Cardiovascular: NL Sounds; No Murmurs; No JVD, RRR, No Edema, - Abdominal: NL Sounds; No Tenderness; No Distention, No Hepatosplenomegaly, - Extremities: No Clubbing, Cyanosis, - - Tr edema BL Skin: No Rash or Ulcers, No Nodules or Sclerosis, - Neurological: Alert and Oriented x 3, NL Sensation Result Diagrams: 08/12/17 05:03 08/13/17 04:57 Microbiology and Other Data: Microbiology 08/11/17 21:58 Nasal Screen MRSA (PCR)(BALWINDER) - Final Nasal Mrsa Not Detected 08/11/17 13:34 Nasal Screen MRSA (PCR)(BALWINDER) - Final Nasal Mrsa Not Detected Assess/Plan/Problems-Billing Assessment: A 77 y/o male with PMHx HTN, HLD, COPD, DM type 2, CAD with hx DC in 1998, who is POD#1 s/p colostomy reversal. - Patient Problems (1) CAD (coronary artery disease) Current Visit: Yes Status: Acute Code(s): I25.10 - ATHSCL HEART DISEASE OF [place] CORONARY ARTERY W/O ANG PCTRS SNOMED Code(s): 22300681 Comment: Resume ASA 08/13. Continue statin, BB. (2) BPH (benign prostatic hyperplasia) Current Visit: Yes Status: Chronic Code(s): N40.0 - BENIGN PROSTATIC HYPERPLASIA WITHOUT LOWER URINRY TRACT SYMP SNOMED Code(s): 267701278 Comment: Remove Erickson cath eark=ly 08/14. Continue tamsulosin, solifenacin. (3) Diabetes mellitus Current Visit: Yes Status: Chronic Code(s): E11.9 - TYPE 2 DIABETES MELLITUS WITHOUT COMPLICATIONS SNOMED Code(s): 39055467 Comment: - POC glucose checks qACHS - well controlled, continue Lispro coverage per sliding scale - can resume hsi usual oral diabetic meds at home. (4) Hypertension Current Visit: Yes Status: Chronic Code(s): I10 - ESSENTIAL (PRIMARY) HYPERTENSION SNOMED Code(s): 76942527 Comment: Continue Lisinopril and Metoprolol (5) GERD (gastroesophageal reflux disease) Current Visit: Yes Status: Chronic Code(s): K21.9 - GASTRO-ESOPHAGEAL REFLUX DISEASE WITHOUT ESOPHAGITIS SNOMED Code(s): 635016373 Comment: - Continue Omeprazole (6) Hypokalemia Current Visit: Yes Status: Acute Code(s): E87.6 - HYPOKALEMIA SNOMED Code( s): 34023252 Comment: KCL 10 meq po tid oredered, to get two doses 08/13. Status and Disposition: Inpatient, anticipate discharge when meically stable per surgical team.
[2017-08-13] MEDS: Aspirin 81 mg CHEW TAB* 81 MG TAB.CHEW PO SCH (15:52)
[2017-08-13] MEDS ORDERED: Potassium Chlor TAB* 10 MEQ TAB.ER PO SCH (16:00)
[2017-08-13] MEDS: Atorvastatin* 20 MG TAB PO SCH (20:25)
[2017-08-13] MEDS: CMCS: Solifenacin(NF) 5 MG TAB PO SCH (21:46)
[2017-08-14] MEDS: Ondansetron 40 MG VIAL* 2 MG/ML 20 ML VIAL IV PRN (05:15)
[2017-08-14] MEDS: Heparin VIAL(*) 5000 UNITS/ML VIAL (FIVE THOUSAND) SUBCUT SCH ×3 (05:58→21:14)
[2017-08-14 06:12] LABS: ABS Basophils 0 10^3/ul (0-0.2); ABS Eosinophils 0.3 10^3/ul (0-0.6); ABS Lymphocytes 0.6 10^3/ul (1.0-4.8); ABS Monocytes 0.3 10^3/ul (0-0.8); ABS Neutrophils 3.7 10^3/ul (1.5-7.7); ABS Nucleated RBC 0 10^3/ul; Hematocrit 31 % (42-52); Hemoglobin 10.6 g/dl (14.0-18.0); Lymphocyte % 12.8 % (25-47); Mean Corpuscular HGB Conc 34 g/dl (31-36); Mean Corpuscular Hemoglobin 28 pg (27-31); Mean Corpuscular Volume 83 fL (80-94); Mean Platelet Volume 7.6 um3 (7.4-10.4); Nucleated Red Blood Cells % 0.1; Platelet Count 125 10^3/ul (150-450); Red Blood Count 3.72 10^6/ul (4.0-5.4); Red Cell Distribution Width 15 % (10.5-15); White Blood Count 4.9 10^3/ul (3.5-10.8)
[2017-08-14 06:24] LABS: EGFR Non-African American 121.9 (>60)
[2017-08-14] MEDS ORDERED: Gabapentin CAP(*) 300 MG PO SCH (09:00)
[2017-08-14] MEDS: Aspirin 81 mg CHEW TAB* 81 MG TAB.CHEW PO SCH (09:58)
[2017-08-14] MEDS: Gabapentin CAP(*) 300 MG PO SCH ×3 (09:59→21:10)
[2017-08-14] MEDS: Lisinopril TAB* 5 MG PO SCH (09:59)
[2017-08-14] MEDS: Omeprazole CAP* 20 MG PO SCH (09:59)
[2017-08-14] MEDS: Potassium Chlor TAB* 20 MEQ TAB.ER PO SCH ×3 (09:59→21:10)
[2017-08-14] MEDS: Furosemide TAB* 20 MG PO SCH (09:59)
[2017-08-14] MEDS: Metoprolol Tartrate TAB* 25 MG PO SCH ×2 (09:59→21:11)
[2017-08-14] MEDS: Tamsulosin CAP* 0.4 MG PO SCH (10:00)
[2017-08-14] MEDS: Insulin LISPRO* 1 UNITS UNIT SUBCUT SCH ×4 (10:00→21:12)
[2017-08-14] MEDS: Dorzolamide/Timolol OPTH (NF) 10 ML BOT RIGHT EYE SCH ×2 (10:00→21:17)
--- NOTE | 2017-08-14 14:05 | PN ---
Progress Note - Progress Note Date of Service: 08/14/17 SOAP: Subjective: Patient initially seen at 0745 this morning. He had several loose BM's this morning and is passing some gas. He does have some nausea, complaints of pain at old ostomy site No CP or SOB Objective: Temp Pulse Resp BP Pulse Ox 98.3 F 88 16 133/67 96 08/14/17 11:01 08/14/17 11:01 08/14/17 12:14 08/14/17 11:01 08/14/17 11:01 Intake & Output 08/12/17 08/13/17 08/14/17 08/15/17 06:59 06:59 06:59 06:59 Intake Total 5130 3941 1457 600 Output Total 7949 430 8625 450 Balance 3600 3091 -468 150 Intake: IV Fluids 4400 2981 1137 CLINDAMYCIN 900 MG 50 GENTAMYCIN 330 MG 250 Hetastarch 500 LR 1600 NS (0.9%) 1999 2981 1137 Oral 730 960 320 600 Output: Urine 150 125 450 Erickson 5826 738 7284 Residual 30 Erickson 16 Fr 30 Estimated Blood Loss 100 Other: Estimated Void Medium Medium Small Date of Last Bowel 08/13/17 08/14/17 Movement # Bowel Movements 0 1 1 Estimated Stool Amount Small Small Medium Medium # Voids 1 PEX: Comfortable-awake and alert in chair Lungs are clear with decreased breath sounds at the bases. No rales or rhonchi Abd is soft and slightly distended. Bowel sounds are hyperactive throughout and not high pitched or tinkling. Ostomy site is clean and pink without odor or redness. Appropriate incisional discomfort Ext without edema Laboratory Results - last 24 hr 08/13/17 08/13/17 08/13/17 04:57 16:53 21:41 WBC RBC Hgb Hct MCV MCH MCHC RDW Plt Count MPV Neut % (Auto) Lymph % (Auto) Jewell % (Auto) Eos % (Auto) Baso % (Auto) Absolute Neuts (auto) Absolute Lymphs (auto) Absolute Monos (auto) Absolute Eos (auto) Absolute Basos (auto) Absolute Nucleated RBC Nucleated RBC % Sodium 137 L Potassium 3.3 L Chloride 106 Carbon Dioxide 24 Anion Gap 7 BUN 6 Creatinine 0.64 L Est GFR ( Amer) 156.8 Est GFR (Non-Af Amer) 121.9 BUN/Creatinine Ratio 9.4 Glucose 128 H POC Glucose (mg/dL) 144 H 135 H Calcium 6.9 L Total Bilirubin AST ALT Alkaline Phosphatase Total Protein Albumin Globulin Albumin/Globulin Ratio TSH 1.01 08/14/17 08/14/17 08/14/17 05:46 05:46 07:53 WBC 4.9 RBC 3.72 L Hgb 10.6 L Hct 31 L MCV 83 MCH 28 MCHC 34 RDW 15 Plt Count 125 L MPV 7.6 Neut % (Auto) 74.4 Lymph % (Auto) 12.8 L Jewell % (Auto) 6.1 Eos % (Auto) 6.0 Baso % (Auto) 0.7 Absolute Neuts (auto) 3.7 Absolute Lymphs (auto) 0.6 L Absolute Monos (auto) 0.3 Absolute Eos (auto) 0.3 Absolute Basos (auto) 0 Absolute Nucleated RBC 0 Nucleated RBC % 0.1 Sodium 137 L Potassium 3.6 Chloride 105 Carbon Dioxide 25 Anion Gap 7 BUN 4 L Creatinine 0.64 L Est GFR ( Amer) 156.8 Est GFR (Non-Af Amer) 121.9 BUN/Creatinine Ratio 6.3 L Glucose 142 H POC Glucose (mg/dL) 155 H Calcium 7.8 L Total Bilirubin 0.70 AST 7 L ALT 7 Alkaline Phosphatase 39 Total Protein 5.5 L Albumin 3.1 L Globulin 2.4 Albumin/Globulin Ratio 1.3 TSH 08/14/17 11:47 WBC RBC Hgb Hct MCV MCH MCHC RDW Plt Count MPV Neut % (Auto) Lymph % (Auto) Jewell % (Auto) Eos % (Auto) Baso % (Auto) Absolute Neuts (auto) Absolute Lymphs (auto) Absolute Monos (auto) Absolute Eos (auto) Absolute Basos (auto) Absolute Nucleated RBC Nucleated RBC % Sodium Potassium Chloride Carbon Dioxide Anion Gap BUN Creatinine Est GFR ( Amer) Est GFR (Non-Af Amer) BUN/Creatinine Ratio Glucose POC Glucose (mg/dL) 168 H Calcium Total Bilirubin AST ALT Alkaline Phosphatase Total Protein Albumin Globulin Albumin/Globulin Ratio TSH Assessment: POD#3 s/p open colostomy reversal Ileus-resolving Multiple medical issues Plan: D/C IVF PO as tolerated Increase activity Wound care Sub q heparin Hopeful d/c in next 24-48 hours-he lives alone and will need some support
--- NOTE | 2017-08-14 15:47 | PN ---
Subjective Date of Service: 08/14/17 Interval History: Pt seen and examined. Meds and labs reviewed. Pt complained of several loose BM's this morning and is passing some gas. He also complained some nausea and pain at old ostomy site earlier but mentions that they have since improved. Was also complaining of leg pain due to his well documented neuropathy and mentions he is on Gabapentin 600 mg TID. Gabapentin ordered. ROS: Diarrhea, nausea, LE pain and pain at old ostomy site. Denied HOFFMAN/ dizziness, F/C, Vomiting, CP, SOB, increased cough, sputum production, abd pain , constipation, dysuria, throat pain, and new skin lesions. The rest of the 14 point ROS are unremarkable. PHYSICAL EXAM: GEN APPEARANCE: Awake, not in acute distress, obese, hard of hearing HEENT: NC/AT, PERRLA, moist oral mucosa, (-) throat erythema NECK: Soft, supple, (-) cervical LAD, (-)JVD HEART: S1S2 WNL, RRR, No MRG CHEST: CTA, BL, GAE, No W/R/R ABD: Soft, ND/NT, NABS 4x Q EXT: No C/C/E SKIN: Warm to touch PSYCH: No active psychosis, hallucinations, depression, SI/HI Assessment and Plan: #CAD (coronary artery disease): -Continue ASA, ACEI, statins, and beta-mary #BPH (benign prostatic hyperplasia): -D/C Erickson to observe if pt will retain prior to planned D/C -Continue tamsulosin, solifenacin. #Diabetes mellitus, well-controlled: - POC glucose checks qACHS -Continue Lispro coverage per sliding scale # Hypertension -Continue Lisinopril and Metoprolol #GERD (gastroesophageal reflux disease) - Continue Omeprazole #Neuropathy: -Home Gabapentin dose and frequency ordered #Disposition: -Inpatient, anticipate discharge possibly tomorrow -Defer with surgical team -Per pt, his brother Ed can only pick him up tomorrow until 11 AM given his work. Relayed this info to staff to relay to surgical department Family History: Unchanged from Admission Social History: Unchanged from Admission Past Medical History: Unchanged from Admission Objective Active Medications: Acetaminophen (Tylenol Tab*) 650 mg PO Q4H PRN PRN Reason: Pain Or Temperature >101 F Last Admin: 08/13/17 15:34 Dose: 650 mg Albuterol (Ventolin Hfa Inhaler*) 1 puff INH BID PRN PRN Reason: SOB/WHEEZING Aspirin (Aspirin 81 Mg Chew Tab*) 81 mg PO DAILY [facility] Last Admin: 08/14/17 09:58 Dose: 81 mg Atorvastatin Calcium (Lipitor*) 20 mg PO 1999 [facility] Last Admin: 08/13/17 20:25 Dose: 20 mg Dextrose (D50w Syringe 50 Ml*) 12.5 gm IV PUSH .FOR FS < 60 - SS PRN PRN Reason: FS < 60 Dorzolamide/Timolol (Cosopt (Nf)) 1 drop RIGHT EYE [facility] PRN Reason: Protocol Last Admin: 08/14/17 10:00 Dose: Not Given Furosemide (Lasix Tab*) 20 mg PO DAILY [facility] Last Admin: 08/14/17 09:59 Dose: 20 mg Gabapentin (Neurontin Cap(*)) 600 mg PO TID [facility] Stop: 08/24/17 09:37 Last Admin: 08/14/17 14:23 Dose: 600 mg Heparin Sodium (Porcine) (Heparin Vial(*)) 5,000 units SUBCUT Q8HR [facility] Last Admin: 08/14/17 14:23 Dose: 5,000 units Hydromorphone HCl (Dilaudid Inj*) 0.5 mg IV Q1H PRN PRN Reason: Pain - severe Last Admin: 08/12/17 01:25 Dose: 0.5 mg Insulin Human Lispro (Humalog*) 0 units SUBCUT ACHS [facility] PRN Reason: Protocol Last Admin: 08/14/17 13:30 Dose: 3 unit Lisinopril (Prinivil Tab*) 5 mg PO 0800 [facility] Last Admin: 08/14/17 09:59 Dose: 5 mg Metoprolol Tartrate (Lopressor Tab*) 25 mg PO 799,1999 [facility] Last Admin: 08/14/17 09:59 Dose: 25 mg Omeprazole (Prilosec Cap*) 20 mg PO DAILY@0730 [facility] Last Admin: 08/14/17 09:59 Dose: 20 mg Ondansetron HCl (Zofran 40 Mg Vial*) 4 mg IV Q4H PRN PRN Reason: NAUSEA/VOMITING Last Admin: 08/14/17 05:15 Dose: 4 mg Oxycodone/Acetaminophen (Percocet 5/325 Tab*) 1 tab PO Q4H PRN PRN Reason: PAIN Last Admin: 08/13/17 05:59 Dose: 1 tab Potassium Chloride (Klor Con Er Tab*) 20 meq PO TID [facility] Last Admin: 08/14/17 14:23 Dose: 20 meq Solifenacin (Vesicare(Nf)) 5 mg PO 2000 [facility] Last Admin: 08/13/17 21:46 Dose: 5 mg Tamsulosin HCl (Flomax Cap*) 0.4 mg PO 0800 [facility] Last Admin: 08/14/17 10:00 Dose: 0.4 mg Vital Signs - 8 hr 08/14/17 08/14/17 08/14/17 07:59 09:59 11:01 Temperature 98.3 F Pulse Rate 88 Respiratory 18 18 18 Rate Blood Pressure 133/67 (mmHg) O2 Sat by Pulse 99 96 Oximetry 08/14/17 08/14/17 12:14 14:23 Temperature Pulse Rate Respiratory 16 18 Rate Blood Pressure (mmHg) O2 Sat by Pulse Oximetry Oxygen Devices in Use Now: None Result Diagrams: 08/14/17 05:46 08/14/17 05:46 Microbiology and Other Data: Microbiology 08/11/17 21:58 Nasal Screen MRSA (PCR)(BALWINDER) - Final Nasal Mrsa Not Detected 08/11/17 13:34 Nasal Screen MRSA (PCR)(BALWINDER) - Final Nasal Mrsa Not Detected Assess/Plan/Problems-Billing Assessment: A 77 y/o male with PMHx HTN, HLD, COPD, DM type 2, CAD with hx [place] in 1998, who is POD#1 s/p colostomy reversal. Status and Disposition: Inpatient, anticipate discharge when meically stable per surgical team.
[2017-08-14] MEDS: Atorvastatin* 20 MG TAB PO SCH (21:11)
[2017-08-14] MEDS: CMCS: Solifenacin(NF) 5 MG TAB PO SCH (21:11)
[2017-08-15] MEDS: Heparin VIAL(*) 5000 UNITS/ML VIAL (FIVE THOUSAND) SUBCUT SCH (05:34)
[2017-08-15] MEDS: Metoprolol Tartrate TAB* 25 MG PO SCH (08:04)
[2017-08-15] MEDS: Furosemide TAB* 20 MG PO SCH (08:04)
[2017-08-15] MEDS: Omeprazole CAP* 20 MG PO SCH (08:04)
[2017-08-15] MEDS: Lisinopril TAB* 5 MG PO SCH (08:05)
[2017-08-15] MEDS: Tamsulosin CAP* 0.4 MG PO SCH (08:05)
[2017-08-15] MEDS: Potassium Chlor TAB* 20 MEQ TAB.ER PO SCH (08:05)
[2017-08-15] MEDS: Gabapentin CAP(*) 300 MG PO SCH (08:05)
[2017-08-15] MEDS: Aspirin 81 mg CHEW TAB* 81 MG TAB.CHEW PO SCH (08:05)
[2017-08-15 08:10] VITALS: BP 122/69
[2017-08-15] MEDS: Dorzolamide/Timolol OPTH (NF) 10 ML BOT RIGHT EYE SCH (08:12)
[2017-08-15] MEDS: Insulin LISPRO* 1 UNITS UNIT SUBCUT SCH (08:12)
--- NOTE | 2017-08-15 09:32 | PN ---
Progress Note - Progress Note Date of Service: 08/15/17 SOAP: Subjective: Doing well-had multiple BM's yesterday and is tolerating full liquids No nausea and is ambulating well He would like to go home Objective: Temp Pulse Resp BP Pulse Ox 97.5 F 89 16 122/69 99 08/15/17 07:22 08/15/17 07:22 08/15/17 08:05 08/15/17 07:22 08/15/17 07:22 Intake & Output 08/13/17 08/14/17 08/15/17 08/16/17 06:59 06:59 06:59 06:59 Intake Total 3941 1457 900 Output Total 850 1925 1500 Balance 3090 -394 -600 Intake: IV Fluids 2981 1137 NS (0.9%) 2981 1137 Oral 960 320 900 Output: Urine 125 1500 Erickson 850 1800 Other: Estimated Void Medium Medium Small Date of Last Bowel 08/13/17 08/14/17 Movement # Bowel Movements 1 1 0 Estimated Stool Amount Small Medium Medium # Voids 1 PEX: Comfortable Lungs are clear Abd is soft and slightly distended. Bowel sounds are present and are normoactive. Ostomy site is clean and pink, packing changed. Ext without edema Assessment: POD#4 s/p open colostomy reversal Ileus-resolved Plan: Advance diet D/C home today Wound care VN at home arranged Follow up in office next -appt made D/C summary dictated.
--- NOTE | 2017-08-15 14:19 | PN ---
Hospitalist Progress Note Date of Service: 08/15/17 Pt seen and examined this AM. Meds and labs reviewed. Pt already seen by Dr. Mclaughlin who confirmed he will be discharged soon. ROS: Denied HOFFMAN/dizziness, F/C, N/V, CP, SOB, increased cough, sputum production , abd pain, diarrhea, constipation, dysuria, myalgias, arthralgias, throat pain , and new skin lesions. The rest of the 14 point ROS are unremarkable. PHYSICAL EXAM: GEN APPEARANCE: Awake, not in acute distress HEENT: NC/AT, PERRLA, moist oral mucosa, (-) throat erythema NECK: Soft, supple, (-) cervical LAD, (-)JVD HEART: S1S2 WNL, RRR, No MRG CHEST: CTA, BL, GAE, No W/R/R ABD: Soft, ND/NT, NABS 4x Q EXT: No C/C/E SKIN: Warm to touch PSYCH: No active psychosis, hallucinations, depression, SI/HI ASSESSMENT AND PLAN: #CAD (coronary artery disease): -Continue ASA, ACEI, statins, and beta-mary #BPH (benign prostatic hyperplasia): -Continue tamsulosin, solifenacin. #Diabetes mellitus, well-controlled: - POC glucose checks per usual at home -Continue Lispro coverage per sliding scale # Hypertension -Continue Lisinopril and Metoprolol #GERD (gastroesophageal reflux disease) - Continue Omeprazole #Neuropathy: -Home Gabapentin dose and frequency ordered #Disposition: -Scheduled for D/C -Thank you for giving us an opportunity to follow Mr. Hannon with you.
--- NOTE | 2017-08-16 04:52 | DS ---
CC: Dr. Julio César Mayberry, Internal Medicine Physician, [facility] * DISCHARGE SUMMARY: DATE OF ADMISSION: 08/11/17 DATE OF DISCHARGE: 08/15/17 PRINCIPAL DIAGNOSIS: Existing transverse loop colostomy. PROCEDURE PERFORMED: Open reversal of transverse loop colostomy. SECONDARY DIAGNOSES: 1. Coronary artery disease. 2. Hypertension. 3. Obstructive lung disease. 4. Ghk-cslwfej-vmwxznror diabetes. CONDITION ON DISCHARGE: Good. DISPOSITION: To home. INSTRUCTIONS ON DISCHARGE: Visiting nurses arranged to come to his home for every other day wound packing changes at the ostomy site. Followup appointment was made with the [facility] in the [place] office on , 08/21/17, at 2 o'clock. He was to resume all of his preoperative medications and was instructed to advance his diet to his usual regular diabetic diet. MEDICATIONS: Include: 1. Albuterol inhaler p.r.n. 2. Aspirin 81 mg daily. 3. Lipitor 20 mg daily. 4. Cosopt 1 drop right eye daily. 5. Lasix 20 mg daily. 6. Gabapentin 600 mg t.i.d. 7. Lisinopril 5 mg p.o. daily. 8. Metoprolol 25 mg daily. 9. Potassium chloride 20 mEq daily. 10. Tamsulosin 0.4 mg daily. ACTIVITY: Activity restrictions were given. He does not drive. HOSPITAL COURSE: Mr. 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 He has done well and completely recovered from this infection and has been cleared medically and was admitted for a scheduled elective colostomy reversal. On the day of presentation, he underwent an open reversal of his existing loop colostomy. He was admitted to the regular nursing floor, started on IV fluids. An insulin sliding scale was instituted and he was allowed clear liquids immediately postop. Over the next several days, his ileus resolved and started having multiple loose bowel movements, and by postoperative day #4, he was tolerating a full liquid diet. He remained afebrile with no nausea. He was ambulating in the hallway. He is urinating without difficulty. He had remained afebrile throughout his hospital course. He was discharged home with the above instructions. [id number]/[facility] [place] #: [id number] [facility]
== END 2017-08-15 10:45 | disposition home health service (06) | DRG 330 ==
LOC: AA 08-11 06:04 → SSU 08-11 13:38
PROVIDERS: ADMIT Surgery; ATTEND Surgery
PROC: 0DBL0ZZ Excision of Transverse Colon, Open Approach (ICD-10-PCS; principal; 2017-08-11 07:30)
DX: Z43.3 Encounter for attention to colostomy (principal); K56.7 Ileus, unspecified; J90 Pleural effusion, not elsewhere classified; I25.10 Atherosclerotic heart disease of native coronary artery without angina pectoris; I10 Essential (primary) hypertension; J44.9 Chronic obstructive pulmonary disease, unspecified; K52.9 Noninfective gastroenteritis and colitis, unspecified; E78.5 Hyperlipidemia, unspecified; H91.90 Unspecified hearing loss, unspecified ear; M19.90 Unspecified osteoarthritis, unspecified site; D52.1 Drug-induced folate deficiency anemia; E66.3 Overweight; N40.0 Benign prostatic hyperplasia without lower urinary tract symptoms; K21.9 Gastro-esophageal reflux disease without esophagitis; E11.40 Type 2 diabetes mellitus with diabetic neuropathy, unspecified; R11.0 Nausea; E87.6 Hypokalemia; R00.0 Tachycardia, unspecified; G89.29 Other chronic pain; M54.9 Dorsalgia, unspecified; Z79.82 Long term (current) use of aspirin; Z87.01 Personal history of pneumonia (recurrent); I25.2 Old myocardial infarction; Z85.038 Personal history of other malignant neoplasm of large intestine; Z92.21 Personal history of antineoplastic chemotherapy; Z92.3 Personal history of irradiation; Z88.0 Allergy status to penicillin; Z88.1 Allergy status to other antibiotic agents; Z80.9 Family history of malignant neoplasm, unspecified; Z87.891 Personal history of nicotine dependence; Z68.34 Body mass index [BMI] 34.0-34.9, adult
CPT/HCPCS: 36415; 80048; 80053; 84443; 85025; 87641; 88304; 93005; A9270-GY; C1776; J1100; J1170; J1580; J1644; J2250; J2405; J2704; J3010